=== PATIENT | female | born 1950 | race Caucasian/White ===

== ENCOUNTER 2017-11-10 09:21 | Emergency (ER) | payer MEDICARE ==
[2017-11-10] MEDS ORDERED: Acetaminophen TAB* 325 MG PO ONE (10:39)
[2017-11-10 10:48] LABS: ABS Basophils 0 10^3/ul (0-0.2); ABS Eosinophils 0.1 10^3/ul (0-0.6); ABS Monocytes 0.4 10^3/ul (0-0.8); ABS Neutrophils 6.7 10^3/ul (1.5-7.7); ABS Nucleated RBC 0 10^3/ul; Eosinophil % 0.7 % (0-6); Hematocrit 44 % (35-47); Hemoglobin 14.8 g/dl (12.0-16.0); Lymphocyte % 12.3 % (25-47); Mean Corpuscular HGB Conc 34 g/dl (31-36); Mean Corpuscular Hemoglobin 31 pg (27-31); Mean Corpuscular Volume 92 fL (80-97); Mean Platelet Volume 8.3 um3 (7.4-10.4); Nucleated Red Blood Cells % 0.1; Platelet Count 222 10^3/ul (150-450); Red Blood Count 4.75 10^6/ul (4.0-5.4); Red Cell Distribution Width 13 % (10.5-15); White Blood Count 8.3 10^3/ul (3.5-10.8)
[2017-11-10 11:04] LABS: INR 0.96 (0.77-1.02)
[2017-11-10 11:07] LABS: Urine Appearance Clear; Urine Blood 1+ (Negative); Urine Color Straw; Urine Ketones Negative (Negative); Urine Protein Negative (Negative); Urine Specific Gravity 1.011 (1.010-1.030); Urine Urobilinogen Negative (Negative)
[2017-11-10 11:09] LABS: EGFR Non-African American 79.5 (>60)
--- NOTE | 2017-11-10 11:26 | RAD ---
Indication: Shortness of breath, dizziness. Fatigue. Arm pain. Comparison: No relevant prior exams available on the [facility] PACS for comparison. Technique: Upright AP 1050 hours Report: Elevated lung volumes. Clear lungs and pleural spaces. Negative for pneumothorax. The heart, pulmonary vasculature, and mediastinal contours are unremarkable. RIGHT breast, RIGHT axillary, and LEFT upper quadrant surgical clips. Unremarkable osseous structures and soft tissue contours. IMPRESSION: Elevated lung volumes suggest potential obstructive lung disease. No evidence for acute intrathoracic disease.
--- NOTE | 2017-11-10 12:07 | ED ---
Keron Harvey Elizabeth, scribed for Azam Gee on 11/10/17 at 1024 . Complex/Multi-Sys Presentation - HPI Summary HPI Summary: This patient is a 67 year old F presenting to [facility] with a chief complaint of weakness since this morning. Symptoms aggravated by walking around. Symptoms alleviated by nothing. Patient reports shortness of breath, fatigue, ear pain, lightheadedness, left shoulder pain 1 day ago. Per triage note the patient also reports chills and cramping in her left leg that began this morning. The patient also reports having the stomach flu earlier in the week.Patient denies cough or congestion. - History Of Current Complaint Chief Complaint: EDGeneral Time Seen by Provider: 11/10/17 10:07 Hx Obtained From: Patient Onset/Duration: Lasting Hours, Still Present Timing: Intermittent, Lasting:, Hours Severity Currently: Mild Severity Initially: Mild Aggravating Factor(s): ambulation Associated Signs And Symptoms: Positive: Weakness, SOB. Negative: Cough, Chest Pain - Allergies/Home Medications Allergies/Adverse Reactions: Allergies Allergy/AdvReac Type Severity Reaction Status Date / Time Penicillins Allergy Severe Hives Verified 11/10/17 09:31 Sulfa (Sulfonamide Allergy Severe Hives Verified 11/10/17 09:31 Antibiotics) Home Medications: Home Medications Glucosamine & Chondroitin Cap 1 cap PO DAILY 11/10/17 [History Confirmed ] Multivitamin [[id number]] 1 tab PO DAILY 11/10/17 [History Confirmed 11/10] PMH/Surg Hx/FS Hx/Imm Hx Sensory History: Denies: Hx Deafness Opthamlomology History: Denies: Hx Legally Blind - Cancer History Cancer Type, Location and Year: breast cancer, 1996 Infectious Disease History: No Infectious Disease History: Denies: Traveled Outside the [place] in Last 30 Days - Family History Known Family History: Positive: None - Social History Alcohol Use: None Substance Use Type: Reports: None Smoking Status (MU): Never Smoked Tobacco Review of Systems Positive: Chills, Fatigue Positive: Ear Ache Negative: Chest Pain Positive: Shortness Of Breath. Negative: Cough Musculoskeletal: Other - Left shoulder pain present 1 day ago Neurological: Other - positive lightheadedness Positive: Weakness All Other Systems Reviewed And Are Negative: Yes Physical Exam - Summary Physical Exam Summary: Appearance: Well appearing, no pain distress Skin: warm, dry, reflects adequate perfusion Head/face: normal Eyes: EOMI, [place] ENT: normal Neck: supple, non-tender Respiratory: CTA, breath sounds present Cardiovascular: RRR, pulses symmetrical ~ Abdomen: non-tender, soft Bowel: present Musculoskeletal: normal, strength/ROM intact Neuro: normal, sensory motor intact, A&Ox3 Triage Information Reviewed: Yes Vital Signs On Initial Exam: Initial Vitals Temp Pulse Resp BP Pulse Ox 97.9 F 97 15 144/81 98 11/10/17 09:26 11/10/17 09:26 11/10/17 09:26 11/10/17 09:26 11/10/17 09:26 Vital Signs Reviewed: Yes Diagnostics - Vital Signs Vital Signs Temp Pulse Resp BP Pulse Ox 11/10/17 10:01 100 20 95 11/10/17 09:59 97 14 146/78 96 11/10/17 09:56 10 11/10/17 09:26 97.9 F 97 15 144/81 98 - Laboratory Lab Results: Lab Results 11/10/17 11/10/17 11/10/17 Range/Units 10:21 10:40 10:40 WBC (3.5-10.8) 10^3/ul RBC (4.0-5.4) 10^6/ul Hgb (12.0-16.0) g/dl Hct (35-47) % MCV (80-97) fL MCH (27-31) pg MCHC (31-36) g/dl RDW (10.5-15) % Plt Count (150-450) 10^3/ul MPV (7.4-10.4) um3 Neut % (Auto) (38-83) % Lymph % (Auto) (25-47) % [place] % (Auto) (0-7) % Eos % (Auto) (0-6) % Baso % (Auto) (0-2) % Absolute Neuts (auto) (1.5-7.7) 10^3/ul Absolute Lymphs (auto) (1.0-4.8) 10^3/ul Absolute Monos (auto) (0-0.8) 10^3/ul Absolute Eos (auto) (0-0.6) 10^3/ul Absolute Basos (auto) (0-0.2) 10^3/ul Absolute Nucleated RBC 10^3/ul Nucleated RBC % INR (Anticoag Therapy) 0.96 (0.77-1.02) APTT 33.7 (26.0-36.3) seconds Sodium (139-145) mmol/L Potassium (3.5-5.0) mmol/L Chloride (101-111) mmol/L Carbon Dioxide (22-32) mmol/L Anion Gap (2-11) mmol/L BUN (6-24) mg/dL Creatinine (0.51-0.95) mg/dL Est GFR ( Amer) (>60) Est GFR (Non-Af Amer) (>60) BUN/Creatinine Ratio (8-20) Glucose (70-100) mg/dL Lactic Acid (0.5-2.0) mmol/L Calcium (8.6-10.3) mg/dL Magnesium (1.9-2.7) mg/dL Total Bilirubin (0.2-1.0) mg/dL AST (13-39) U/L ALT (7-52) U/L Alkaline Phosphatase (34-104) U/L Troponin I (<0.04) ng/mL B-Natriuretic Peptide 51 ( - 100) pg/mL Total Protein (6.4-8.9) g/dL Albumin (3.2-5.2) g/dL Globulin (2-4) g/dL Albumin/Globulin Ratio (1-3) TSH (0.34-5.60) mcIU/mL Urine Color Straw Urine Appearance Clear Urine pH 5.0 (5-9) Ur Specific Metter 1.011 (1.010-1.030) Urine Protein Negative (Negative) Urine Ketones Negative (Negative) Urine Blood 1+ A (Negative) Urine Nitrate Negative (Negative) Urine Bilirubin Negative (Negative) Urine Urobilinogen Negative (Negative) Ur Leukocyte Esterase Negative (Negative) Urine WBC (Auto) Trace(0-5/hpf) (Absent) Urine RBC (Auto) Trace(0-2/hpf) (Absent) Ur Squamous Epith Cells Present A (Absent) Urine Bacteria 1+ A (Absent) Urine Glucose Negative (Negative) 11/10/17 11/10/17 11/10/17 Range/Units 10:40 10:40 10:46 WBC 8.3 (3.5-10.8) 10^3/ul RBC 4.75 (4.0-5.4) 10^6/ul Hgb 14.8 (12.0-16.0) g/dl Hct 44 (35-47) % MCV 92 (80-97) fL MCH 31 (27-31) pg MCHC 34 (31-36) g/dl RDW 13 (10.5-15) % Plt Count 222 (150-450) 10^3/ul MPV 8.3 (7.4-10.4) um3 Neut % (Auto) 81.4 (38-83) % Lymph % (Auto) 12.3 L (25-47) % [place] % (Auto) 5.3 (0-7) % Eos % (Auto) 0.7 (0-6) % Baso % (Auto) 0.3 (0-2) % Absolute Neuts (auto) 6.7 (1.5-7.7) 10^3/ul Absolute Lymphs (auto) 1.0 (1.0-4.8) 10^3/ul Absolute Monos (auto) 0.4 (0-0.8) 10^3/ul Absolute Eos (auto) 0.1 (0-0.6) 10^3/ul Absolute Basos (auto) 0 (0-0.2) 10^3/ul Absolute Nucleated RBC 0 10^3/ul Nucleated RBC % 0.1 INR (Anticoag Therapy) (0.77-1.02) APTT (26.0-36.3) seconds Sodium 139 (139-145) mmol/L Potassium 4.0 (3.5-5.0) mmol/L Chloride 106 (101-111) mmol/L Carbon Dioxide 23 (22-32) mmol/L Anion Gap 10 (2-11) mmol/L BUN 19 (6-24) mg/dL Creatinine 0.73 (0.51-0.95) mg/dL Est GFR ( Amer) 102.3 (>60) Est GFR (Non-Af Amer) 79.5 (>60) BUN/Creatinine Ratio 26.0 H (8-20) Glucose 106 H (70-100) mg/dL Lactic Acid 1.4 (0.5-2.0) mmol/L Calcium 9.3 (8.6-10.3) mg/dL Magnesium 2.0 (1.9-2.7) mg/dL Total Bilirubin 0.30 (0.2-1.0) mg/dL AST 33 (13-39) U/L ALT 38 (7-52) U/L Alkaline Phosphatase 73 (34-104) U/L Troponin I 0.00 (<0.04) ng/mL B-Natriuretic Peptide ( - 100) pg/mL Total Protein 7.8 (6.4-8.9) g/dL Albumin 4.2 (3.2-5.2) g/dL Globulin 3.6 (2-4) g/dL Albumin/Globulin Ratio 1.2 (1-3) TSH 1.02 (0.34-5.60) mcIU/mL Urine Color Urine Appearance Urine pH (5-9) Ur Specific Metter (1.010-1.030) Urine Protein (Negative) Urine Ketones (Negative) Urine Blood (Negative) Urine Nitrate (Negative) Urine Bilirubin (Negative) Urine Urobilinogen (Negative) Ur Leukocyte Esterase (Negative) Urine WBC (Auto) (Absent) Urine RBC (Auto) (Absent) Ur Squamous Epith Cells (Absent) Urine Bacteria (Absent) Urine Glucose (Negative) Result Diagrams: 11/10/17 10:40 11/10/17 10:40 Lab Statement: Any lab studies that have been ordered have been reviewed, and results considered in the medical decision making process. - Radiology CXR Xray Interpretation: Positive (See Comments) - IMPRESSION: Elevated lung volumes suggest potential obstructive lung disease. No evidence for acute intrathoracic disease. Dr. Gee has reviewed this report. Radiology Interpretation Completed By: Radiologist - EKG 10:25 Cardiac Rate: NL - at 87 BPM EKG Rhythm: Sinus Rhythm EKG Interpretation: NSR, no acute changes Complex Multi-Symp Course/Dx Course Of Treatment: This patient is a 67 year old F presenting to [facility] with a chief complaint of weakness since this morning. Patient reports shortness of breath, fatigue, ear pain, lightheadedness, left shoulder pain 1 day ago. An EKG reveals NSR at 87 bpm with no acute changes. CXR reveals, per radiologist, elevated lung volumes suggesting potential obstructive lung disease, no evidence for acute intrathoracic disease. ED physician has reviewed this radiology report. In the ED course the patient was given acetaminophen. refused ct of head. Patient will be discharged home and is advised to follow up with her primary care physician in 2-3 days. The patient is agreeable with this plan. - Diagnoses Differential Diagnoses/HQI/PQRI: Cardiac Ischemia, Sepsis, Urinary Tract Infection Provider Diagnoses: Weakness Discharge - Sign-Out/Discharge Documenting (check all that apply): Discharge/Admit/Transfer - Discharge Plan Condition: Stable Disposition: HOME Patient Education Materials: Weakness (ED) Referrals: Brooke Everett NP [Primary Care Provider] - 2 Days (Follow up with primary care physician in 2-3 days.) Additional Instructions: Follow up with primary care physician in 2-3 days. Return to the emergency department with any new or worsening symptoms. - Billing Disposition and Condition Condition: STABLE Disposition: HOME The documentation as recorded by the Keron lee Elizabeth accurately reflects the service I personally performed and the decisions made by , Azam Gee.
[2017-11-10 12:16] VITALS: BP 118/81
== END 2017-11-10 12:15 | disposition home or self-care (01) ==
LOC: ED 09:21
DX: R53.1 Weakness (principal); R06.02 Shortness of breath; R53.83 Other fatigue; H92.09 Otalgia, unspecified ear; R42 Dizziness and giddiness; M25.512 Pain in left shoulder; R68.83 Chills (without fever); R25.2 Cramp and spasm; Z85.3 Personal history of malignant neoplasm of breast; Z88.0 Allergy status to penicillin; Z88.2 Allergy status to sulfonamides
CPT/HCPCS: 36415; 71045; 80053; 81003; 81015; 83605; 83735; 83880; 84443; 84484; 85025; 85610; 85730; 87086; 93005; 99282; A9270-GY

== ENCOUNTER 2022-05-11 07:22 | Inpatient (IN) ==
[~2022-05-11 07:22] MED LIST: Buffered Lidocaine 1% SYRIN 1 ml INTRADERM ONE; Dexamethasone IV 4 MG/ML VIAL 1 ml VIAL ONE; Lactated Ringers 1000 ml BAG 1,000 ML IV SCH; Midazolam 5 mg/5 ml VIAL 1 mg/ml 5 ml VIAL (5 mg) ONE; Ondansetron 4 mg VIAL 2 MG/ML 2 ml VIAL ONE; Phenylephrine IV 10 MG/ML 1 ml VIAL ONE; fentaNYL 100 mcg/2 ml 50 MCG/ML VIAL ONE
[2022-05-11] MEDS ORDERED: Clindamycin 900 MG/D5W BAG 900 MG/50 ML BAG IVPB ONE (08:03)
[2022-05-11] MEDS ORDERED: Midazolam 2 mg/2 ml VIAL 1 mg/ml 2 ml VIAL (2 mg) ONE (08:16)
[2022-05-11] MEDS ORDERED: Buffered Lidocaine 1% SYRIN 1 ml INTRADERM ONE (08:18)
[2022-05-11] MEDS ORDERED: Lidocaine 1% MPF 5 ML VIAL ONE (08:46)
[2022-05-11] MEDS ORDERED: ROPIVACAINE 5 MG/ML 30 ML BTL (0.5%) ONE (08:46)
[2022-05-11] MEDS ORDERED: Ropivacaine 5 MG/ML 20 ML VIAL 0.5% (100 MG) ONE (08:58)
[2022-05-11] MEDS ORDERED: Naloxone 0.4 mg VIAL 0.4 mg/ml 1 ml VIAL IV PRN (10:04)
[2022-05-11] MEDS ORDERED: HYDROmorphone 1 MG/1 ML SYRINGE IV PRN (10:04)
[2022-05-11] MEDS ORDERED: Ondansetron 4 mg VIAL 2 MG/ML 2 ml VIAL IV PRN ×2 (10:04→11:46)
[2022-05-11] MEDS ORDERED: fentaNYL 100 mcg/2 ml 50 MCG/ML VIAL IV PRN (10:04)
[2022-05-11] MEDS ORDERED: Acetaminophen IV 1 GM/100ML 1,000 MG/100 ML BAG IV PRN (10:04)
[2022-05-11] MEDS ORDERED: Lactulose 30 ml UDC PO PRN (11:46)
[2022-05-11] MEDS ORDERED: Magnesium Hydroxide LIQ 30 ML UDC PO PRN (11:46)
[2022-05-11] MEDS ORDERED: Morphine 2 MG/ML SYRINGE IV PRN (11:46)
[2022-05-11] MEDS ORDERED: Ondansetron ODT 4 mg TAB 4 MG TAB PO PRN (11:46)
[2022-05-11] MEDS ORDERED: Lactated Ringers 1000 ml BAG 1,000 ML IV SCH (12:00)
[2022-05-11] MEDS: Clindamycin 600 MG/D5W BAG 600 MG/50 ML BAG IV SCH (18:29)
[2022-05-11] MEDS: Magnesium Hydroxide LIQ 30 ML UDC PO SCH (21:52)
[2022-05-12] MEDS: Clindamycin 600 MG/D5W BAG 600 MG/50 ML BAG IV SCH ×2 (02:29→09:03)
[2022-05-12 06:41] LABS: Hematocrit 34 % (35-47); Hemoglobin 11.5 g/dL (12.0-16.0); Mean Platelet Volume 8.3 fL (7.4-10.4); Platelet Count 246 10^3/uL (150-450)
[2022-05-12 07:00] LABS: Calcium 8.7 mg/dL (8.6-10.3); eGFR CKD-EPI 90.8 (>60)
[2022-05-12] MEDS: Magnesium Hydroxide LIQ 30 ML UDC PO SCH (08:47)
[2022-05-12] MEDS ORDERED: Vitamin THERAPEUTIC TAB PO SCH (09:00)
[2022-05-12 11:41] VITALS: BP 94/60
== END 2022-05-12 13:38 | disposition home or self-care (01) | DRG 470 ==
LOC: INTOOBSV 07:22 → AA 07:22 → OBSVTOIN 07:22 → SSU 11:46
PROVIDERS: ADMIT Orthopaedic Surgery Adult Reconstructive Orthopaedic Surgery; ATTEND Orthopaedic Surgery Adult Reconstructive Orthopaedic Surgery

== ENCOUNTER 2022-05-14 05:25 | Inpatient (IN) ==
[2022-05-14] MEDS ORDERED: methylPREDNISolone SOD SUCC 125 mg 2 ML VIAL IV ONE (07:00)
[2022-05-14] MEDS ORDERED: Famotidine IV 10 MG/ML 2 ml VIAL (20 mg) IV SLOW PU ONE (07:00)
[2022-05-14] MEDS ORDERED: Lactated Ringers 1000 ml BAG 1,000 ML IV ONE (07:28)
[2022-05-14] MEDS ORDERED: Clindamycin 600 MG/D5W BAG 600 MG/50 ML BAG IV ONE (09:03)
[2022-05-14] MEDS ORDERED: Benzocaine/Menthol LOZ MT PRN (09:05)
[2022-05-14 09:26] LABS: Urine Appearance Cloudy; Urine Bilirubin Negative (Negative); Urine Blood 1+ (Negative); Urine Color Straw; Urine Glucose Negative (Negative); Urine Ketones Trace (Negative); Urine Nitrite Negative (Negative); Urine Protein Negative (Negative); Urine Specific Gravity 1.002 (1.002-1.030); Urine Urobilinogen Negative (Negative)
[2022-05-14] MEDS ORDERED: Iohexol 350 (CONTRAST) 500 ML MDV IV ONE (09:51)
[2022-05-14 10:08] LABS: Rapid Strep Molecular Negative (Negative)
[2022-05-14 10:08] LABS: Urine Bacteria 1+ (Absent); Urine Red Blood Cell Trace(0-2/hpf) (Absent); Urine Squamous Epithelial Cell Present (Absent); Urine White Blood Cell Trace(0-5/hpf) (Absent)
[2022-05-14 10:48] LABS: ABS Lymphocytes 0.5 10^3/ul (1.0-4.8); ABS Monocytes 0.2 10^3/ul (0-0.8); ABS Neutrophils 7.4 10^3/ul (1.5-7.7); Eosinophil % 0.5 %; Hematocrit 33 % (35-47); Hemoglobin 10.8 g/dL (12.0-16.0); Lymphocyte % 6.5 %; Mean Corpuscular HGB Conc 33 g/dL (31-36); Mean Corpuscular Hemoglobin 30 pg (27-31); Mean Corpuscular Volume 91 fL (80-97); Mean Platelet Volume 8.4 fL (7.4-10.4); Platelet Count 239 10^3/uL (150-450); Red Blood Count 3.57 10^6 /uL (3.70-4.87); Red Cell Distribution Width 13 % (10-15); White Blood Count 8.1 10^3/uL (3.5-10.8)
[2022-05-14 11:28] LABS: ALT 23 U/L (7-52); Albumin/Globulin Ratio 1.4 (1-3); Alkaline Phosphatase 48 U/L (35-149); Blood Urea Nitrogen 7 mg/dL (6-24); C Reactive Protein 93.87 mg/L (<8.01); CO2 Carbon Dioxide 22 mmol/L (22-32); Calcium 7.5 mg/dL (8.6-10.3); Chloride 103 mmol/L (101-111); Globulin 2.2 g/dL (2-4); Glucose 119 mg/dL (70-100); Sodium 134 mmol/L (135-145); Total Protein 5.2 g/dL (6.4-8.9); eGFR CKD-EPI 103.3 (>60)
[2022-05-14 11:29] LABS: Anion Gap 9 mmol/L (2-11)
[2022-05-14] MEDS ORDERED: hydrALAZINE 20 mg/ml 1 ML Vial IV IV SLOW PU ONE (13:48)
[2022-05-14] MEDS: Clindamycin 600 MG/D5W BAG 600 MG/50 ML BAG IV SCH (20:48)
[2022-05-15] MEDS ORDERED: Acetaminophen IV 1 GM/100ML 1,000 MG/100 ML BAG IV PRN (04:36)
[2022-05-15] MEDS: Clindamycin 600 MG/D5W BAG 600 MG/50 ML BAG IV SCH ×2 (05:13→12:18)
[2022-05-15 05:47] LABS: Potassium Redraw 4.1 mmol/L (3.5-5.0)
[2022-05-15] MEDS: Nystatin SUSPENSION 100,000 UNITS/ML UDC PO SCH ×2 (10:01→12:18)
[2022-05-15 15:45] VITALS: BP 131/55
[2022-05-15] MEDS ORDERED: Influenza vaccine *QUAD* *2022-23* 0.5 ML SYRINGE IM ONE (16:00)
== END 2022-05-15 16:30 | disposition home or self-care (01) | DRG 157 ==
LOC: ED 05:25 → EDHOLD 09:04 → ICU 11:18
PROVIDERS: ADMIT Internal Medicine Critical Care Medicine; ATTEND Internal Medicine Critical Care Medicine